=== PATIENT | female | born 1950 | race Caucasian/White ===

== ENCOUNTER → 2018-05-28 | Outpatient (CLI) | payer MEDICARE ==
--- NOTE | 2018-05-28 09:18 | Diagnostic Imaging Report ---
MRI of the left ankle without contrast. History: Ankle pain. Posterior tibial tendon rupture. Decreased range of motion. Pain worse with walking. Technique: Utilizing a high-field 1.5T magnet, the following sequences were acquired: PD FS in all 3 planes with additional axial PD. Comparison: None. Findings: Achilles tendon and plantar fascia: The Achilles tendon and plantar fascia are normal. Cartilage and bone: Negative for osteochondral lesion of the tibiotalar and subtalar joints. Negative for fracture, osteonecrosis, or dislocation. Scattered degenerative changes are seen. Medial ankle: The deltoid ligament complex is intact. There is mild distal posterior tibial tendinosis. The medial flexor tendons are otherwise normal. There is a physiologic amount of fluid within the tendon sheath of FHL. Lateral ankle: The anterior talofibular, calcaneofibular, and posterior talofibular ligaments are intact. The syndesmotic ligaments are intact. The peroneal tendons are normal. Anterior ankle: There is thickening and degeneration in the extensor tendon to the fourth and fifth toes best seen on series 2 image 14 through 16. No tear or retraction is seen. The anterior extensor tendons are otherwise normal. Other findings: There is a small tibiotalar joint effusion and mild synovitis. Impression: Thickening and degeneration in the extensor tendon to the fourth and fifth toes consistent with tendinosis. No tear or retraction. Mild distal posterior tibial tendinosis. The posterior tibial tendon is otherwise intact. Mild scattered degenerative change about the ankle. Small tibiotalar joint effusion and mild synovitis. Signed by: Dr. Sumeet Martinez M.D. on 05/28/2018 9:05 AM
== END ==
LOC: MRI 07:38
PROVIDERS: ATTEND Podiatrist Foot & Ankle Surgery
DX: M76.822 Posterior tibial tendinitis, left leg (principal); S86.112A Strain of other muscle(s) and tendon(s) of posterior muscle group at lower leg level, left leg, initial encounter